=== PATIENT | male | born 1930 | race Caucasian/White ===

== ENCOUNTER 2018-06-14 15:51 | Inpatient (IN) | payer OTHER, BC ==
[2018-06-14] MEDS ORDERED: OSELTAMIVIR PHOSPHATE 75 MG CAPSULE PO ONE (17:05)
[2018-06-14] MEDS ORDERED: OSELTAMIVIR PHOSPHATE 75 MG CAPSULE ONE (17:13)
[2018-06-14] MEDS ORDERED: guaiFENesin 200 MG/10 ML 10 ML UNIT-DOSE CUPS PO ONE (17:13)
[2018-06-14] MEDS ORDERED: SODIUM CHLORIDE 1,000 ML IV SCH (17:15)
[2018-06-14] MEDS ORDERED: guaiFENesin/D-METHORPHAN HB 10 ML UNIT-DOSE CUPS ONE (17:15)
[2018-06-14 17:23] LABS: BASO % 0.1 % (0-2.0); HEMATOCRIT 34.3 % (35.4-49); HEMOGLOBIN 11.4 GM/dl (11.7-16.9); LYMPH % 11.4 % (8-40); MCH 31.3 pg (25.7-33.7); MCHC 33.3 g/dl (32.0-35.9); MEAN CELL VOLUME 93.9 fl (80-96); MEAN PLT VOLUME 7.7 fl (7.5-11.1); MONO % 7.3 % (3.8-10.2); NEUT % 81.2 % (42.8-82.8); PLATELET COUNT 152 K/MM3 (134-434); RBC 3.65 M/mm3 (4.00-5.60); RDW 13.4 % (11.9-15.9); WHITE BLOOD COUNT 6.4 K/mm3 (4.0-10.8)
[2018-06-14] MEDS ORDERED: guaiFENesin/D-METHORPHAN HB 10 ML UNIT-DOSE CUPS PO ONE (17:23)
[2018-06-14 17:33] LABS: ACTIVATED PTT 29.2 SECONDS (25.2-36.5)
[2018-06-14 17:37] LABS: ALBUMIN 3.5 g/dl (3.5-5.0); ALK PHOS 82 U/L (32-92); ANION GAP 10 MMOL/L (8-16); BILIRUBIN,TOTAL 0.3 mg/dl (0.2-1.0); BLOOD UREA NITROGEN 41 mg/dl (7-18); CALCIUM 8.6 mg/dl (8.4-10.2); CHLORIDE 109 mmol/L (98-107); CO2 17 mmol/L (22-28); CREATININE 1.8 mg/dl (0.6-1.3); GLUCOSE,RANDOM 130 mg/dl (74-106); SGOT/AST 37 U/L (10-42); SGPT/ALT 34 U/L (10-40); SODIUM 136 mmol/L (136-145); TOT PROT 7.3 g/dl (6.4-8.3)
--- NOTE | 2018-06-14 17:37 | PDOC ---
History of Present Illness - General Chief Complaint: Respiratory Stated Complaint: FLU POSITIVE,DIARRHEA,VOMITING,COUGH AND GEN WEAKN Time Seen by Provider: 06/14/18 15:54 History Source: Patient Exam Limitations: No Limitations - History of Present Illness Initial Comments: 06/14/18 17:30 87 year old male c/ hx of lupus on plaquenil, DM, PVD, CKD p/w influenza. 4 days ago, pt started to develop loose stooling and general malaise, and poor appetite. Within last 3 days, the patient started to develop coughing, SOB, difficulty sleeping, tactile fevers. Has been feeling so weak that pt's grandson has been trying to get him around house by picking him up. But patient has been unable to get up. Not really eating. Started to endose some mild but no chest pain. Yesterday, went to [facility] urgent care, where he obtained and influenza swab. Was swabbed positive. However, at that time, the physician decided against tamiflu given that he is also having diarrhea. Today, the symptoms are even worse, and pt is feeling very dehydrated and generally weak. Past History - Past Medical History Allergies/Adverse Reactions: Allergies Allergy/AdvReac Type Severity Reaction Status Date / Time No Known Allergies Allergy Verified 06/14/18 15:58 Home Medications: Ambulatory Orders Aspirin [Children's Aspirin] 81 mg PO DAILY 06/14/18 Baclofen 10 mg PO HS 06/14/18 Cholecalciferol (Vitamin D3) [Vitamin D3 -] 5,000 unit PO DAILY 06/14/18 Cyanocobalamin (Vitamin B-12) [Vitamin B12] 2,500 mcg PO DAILY 06/14/18 Ferrous Sulfate [Iron] 325 mg PO DAILY 06/14/18 Folic Acid 1 mg PO DAILY 06/14/18 Hydrochlorothiazide [Hctz -] 12.5 mg PO DAILY 06/14/18 Hydroxychloroquine Sulfate 200 mg PO DAILY 06/14/18 Leflunomide [Arava] 20 mg PO DAILY 06/14/18 Lisinopril [Zestril] 5 mg PO DAILY 06/14/18 Metformin HCl [Glucophage] 500 mg PO ASDIR 06/14/18 Multivit-Min/FA/Lycopen/Lutein [Centrum Silver Tablet] 1 each PO DAILY 06/14/18 [place]-3S/Dha/Epa/Fish Oil [Fish Oil 1,200 mg Softgel] 1,400 each PO DAILY Omeprazole 40 mg PO DAILY 06/14/18 Rivastigmine Tartrate [Rivastigmine] 3 mg PO BID 06/14/18 Vitamin B Complex 1 each PO DAILY 06/14/18 COPD: No Diabetes: Yes Disorders: Yes (RENAL ISSUES) HTN: Yes Hypercholesterolemia: Yes Other medical history: RA,LUPUS - Suicide/Smoking/Psychosocial Hx Smoking History: Former smoker Have you smoked in the past 12 months: No If you are a former smoker, when did you quit?: 45 years ago Information on smoking cessation initiated: No Hx Alcohol Use: No Drug/Substance Use Hx: No Review of Systems - Review of Systems Able to Perform ROS?: Yes Comments:: 06/14/18 17:32 GENERAL/CONSTITUTIONAL: + fever / chills. + weakness. HEAD, EYES, EARS, NOSE AND THROAT: [No change in vision. No ear pain or discharge. No sore throat.] CARDIOVASCULAR: [No chest pain or shortness of breath.] RESPIRATORY: [No wheezing, or hemoptysis.] + cough GASTROINTESTINAL: [No nausea, vomiting, constipation. No rectal bleeding.] + diarrhea GENITOURINARY: [No dysuria, frequency, or change in urination.] MUSCULOSKELETAL: [No joint or muscle swelling or pain. No neck or back pain.] SKIN AND BREASTS: [No rash or easy bruising.] NEUROLOGIC: [No headache, vertigo, loss of consciousness, or loss of sensation.] PSYCHIATRIC: [No depression or anxiety.] ENDOCRINE: [No increased thirst. No abnormal weight change.] HEMATOLOGIC/LYMPHATIC: [No anemia, easy bleeding, or history of blood clots.] ALLERGIC/IMMUNOLOGIC: [No hives or skin allergy. No latex allergy.] *Physical Exam - Vital Signs Last Vital Signs Temp Pulse Resp BP Pulse Ox 97.5 F L 65 20 136/78 96 06/14/18 15:53 06/14/18 15:53 06/14/18 15:53 06/14/18 15:53 06/14/18 15:53 - Physical Exam Comments: 06/14/18 17:37 GENERAL: Awake, alert, and fully oriented, in no acute distress HEAD: No signs of trauma EYES: EOMI, sclera anicteric, conjunctiva clear ENT: Auricles normal inspection, hearing grossly normal, nares patent. Moist mucosa NECK: Normal ROM, supple, LUNGS: Breath sounds equal, clear to auscultation bilaterally. No wheezes, and no crackles HEART: Regular rate and rhythm, normal S1 and S2, no murmurs, rubs or gallops ABDOMEN: Soft, nontender, No guarding, no rebound. No masses EXTREMITIES: Normal range of motion, no edema. No clubbing or cyanosis. No cords, erythema, or tenderness NEUROLOGICAL: Cranial nerves II through XII grossly intact. Normal speech SKIN: Warm, Dry, normal turgor, no rashes or lesions noted. Moderate Sedation - Procedure Monitoring Vital Signs: Procedure Monitoring Vital Signs Temperature 97.5 F L 06/14/18 15:53 Pulse Rate 65 06/14/18 15:53 Respiratory Rate 20 06/14/18 15:53 Blood Pressure 136/78 06/14/18 15:53 O2 Sat by Pulse Oximetry (%) 96 06/14/18 15:53 Heart Score/ECG Review #1 ECG reviewed & interpreted by me at: 17:10 06/14/18 17:38 NSR 98, no std/hans, normal axis, normal intervals, QTC 446 msec ED Treatment Course - LABORATORY CBC & Chemistry Diagram: 06/14/18 16:58 06/14/18 16:58 - ADDITIONAL ORDERS Additional order review: 06/14/18 16:58 RBC 3.65 L MCV 93.9 MCHC 33.3 RDW 13.4 MPV 7.7 Neutrophils % 81.2 Lymphocytes % 11.4 Monocytes % 7.3 Eosinophils % 0.0 Basophils % 0.1 - RADIOLOGY Radiology Studies Ordered: Category Date Time Status CHEST X-RAY PORTABLE* [RAD] Stat Radiology 06/14/18 16:28 Taken Medical Decision Making - Medical Decision Making 06/14/18 17:39 Vital Signs Temp Pulse Resp BP Pulse Ox 97.5 F L 65 20 136/78 96 06/14/18 15:53 06/14/18 15:53 06/14/18 15:53 06/14/18 15:53 06/14/18 15:53 This is an elderly patient with lupus and diabetes with immunosuprresion with worsening symptoms and positive influenza. Pt is incredibly high risk for influenza complications. According to CDC guidelines, should consider starting tamiflu, even if symptoms > 48 hours. Will order tamiflu. Also given multiple symptoms, decreased PO intake, persistent diarrhea, pt would benefit from an observation from hospital. For stools, will order stool cultures and c-diff. 06/14/18 18:17 CBC, BMP 06/14/18 16:58 06/14/18 16:58 CMP Sodium 136 mmol/L (136-145) 06/14/18 16:58 Potassium 5.0 mmol/L (3.5-5.1) 06/14/18 16:58 Chloride 109 mmol/L (98-107) H 06/14/18 16:58 Carbon Dioxide 17 mmol/L (22-28) L 06/14/18 16:58 Anion Gap 10 MMOL/L (8-16) 06/14/18 16:58 BUN 41 mg/dl (7-18) H 06/14/18 16:58 Creatinine 1.8 mg/dl (0.6-1.3) H 06/14/18 16:58 Creat Clearance w eGFR 36.04 (>60) 06/14/18 16:58 Random Glucose 130 mg/dl (74-106) H 06/14/18 16:58 Calcium 8.6 mg/dl (8.4-10.2) 06/14/18 16:58 Total Bilirubin 0.3 mg/dl (0.2-1.0) 06/14/18 16:58 AST 37 U/L (10-42) 06/14/18 16:58 ALT 34 U/L (10-40) 06/14/18 16:58 Alkaline Phosphatase 82 U/L (32-92) 06/14/18 16:58 Troponin I < 0.03 ng/ml (0.00-0.06) 06/14/18 16:58 Total Protein 7.3 g/dl (6.4-8.3) 06/14/18 16:58 Albumin 3.5 g/dl (3.5-5.0) 06/14/18 16:58 Chest xray reviewed by me, pending official radiology read. R sided pneumonia. Has not been hospitalized for about a year, ceftriaxone and azithromycin ordered. Given CKD, 30 mg PO tamiflu BID ordered. Decision was made to admit patient to the hospital. Case discussed with Dr. Martinez who accepts patient to med/surg admission. Case discussed in detail with admitting physician including history, physical exam and ancillary studies. Admitting physician has assumed care for the patient, will follow all pending diagnostics and will complete the evaluation and treatment. *DC/Admit/Observation/Transfer Diagnosis at time of Disposition: Influenza Pneumonia Qualifiers: Pneumonia type: due to unspecified organism Laterality: unspecified laterality Lung location: unspecified part of lung Qualified Code(s): J18.9 - Pneumonia, unspecified organism - Discharge Dispostion Condition at time of disposition: Fair Decision to Admit order: Yes - Referrals - Patient Instructions - Post Discharge Activity
[2018-06-14 17:38] LABS: INR 1.17 (0.82-1.09); PROTHROMBIN TIME (PATIENT) 13.1 SEC (10.2-13.0)
[2018-06-14] MEDS ORDERED: AZITHROMYCIN IVPB 500 MG in DEXTROSE 5%-WATER - 250 ML IVPB ONE (17:43)
[2018-06-14] MEDS ORDERED: CEFTRIAXONE 1,000 MG in DEXTROSE 5%-WATER - 50 ML IVPB ONE (17:43)
[2018-06-14] MEDS ORDERED: AZITHROMYCIN 500 MG VIAL IVPB ONE (17:46)
[2018-06-14] MEDS ORDERED: cefTRIAXone SODIUM 1 GM VIAL ONE (17:47)
[2018-06-14 18:43] LABS: URINE APPEARANCE Clear; URINE BILIRUBIN Negative (NEGATIVE); URINE COLOR Yellow; URINE GLUCOSE (UA) Negative (NEGATIVE); URINE KETONE Negative (NEGATIVE); URINE LEUK ESTERASE Negative (NEGATIVE); URINE NITRITE Negative (NEGATIVE); URINE PROTEIN 3+ (NEGATIVE); URINE UROBILINOGEN 0.2 (0.2-1.0)
[2018-06-14 18:43] LABS: VENOUS PC02 37.1 mmHg (38-52); VENOUS PH 7.32 (7.32-7.42); VENOUS PO2 33.2 mmHg (28-48)
[2018-06-14 19:08] LABS: URINE BACTERIA 1+ /hpf (NEGATIVE); URINE WBC 0-2 (0-2)
[2018-06-14] MEDS: OSELTAMIVIR PHOSPHATE 30 MG CAPSULE PO SCH ×2 (20:08→22:04)
[2018-06-14] MEDS ORDERED: guaiFENesin 200 MG/10 ML 10 ML UNIT-DOSE CUPS PO STA (21:53)
[2018-06-14] MEDS ORDERED: OSELTAMIVIR PHOSPHATE 30 MG CAPSULE PO SCH (22:00)
--- NOTE | 2018-06-14 22:39 | HP ---
CHIEF COMPLAINT: Flu like symptoms, Generalized Weakness, Diarrhea PCP: [facility] HISTORY OF PRESENT ILLNESS: This is a 87 y/o man with a past medical history of Lupus (Plaqunil), NIDDM, PVD (Stent placed L- Leg), CKD, Dementia. Who presents with his family for flu like symptoms, watery diarrhea (4 days), and generalized weakness. Per the daughter the patient was seen at [facility]- diagnosed with Influenza but was not given rx. She reports he has had fevers for 1 week, nad was concerned that he was dehydrated from the diarrhea, fever and decreased appetite. She reports that he was so weak that an ambulance was called and he was transported to [facility], but due to the long wait time and delays for admission, they left and was brought up to [place] for evaluation. Patient reports fever, diarrhea, weakness and malaise. Patient denies chest pain, abdominal pain, dysuria. Patient's daughter is also sick with the Flu. ER course was notable for: (1) Chest Xray- R Infiltrate (2) T Max 99.1 (3) Recent Travel: [place] PAST MEDICAL HISTORY: See HPI PAST SURGICAL HISTORY: Stent in left leg Cholecystectomy Lithotripsy Social History: Smoking: Former > 40 yrs ago Alcohol: Former > 40 yrs ago Drugs: Denies Lives with spouse, retired, ambulates with [employer] Family History: Father: natural cause age 96 Mother: natural cause age 92 Allergies No Known Allergies Allergy (Verified 06/14/18 15:58) HOME MEDICATIONS: Home Medications Medication Instructions Recorded Aspirin [Children's Aspirin] 81 mg PO DAILY 06/14/18 Baclofen 10 mg PO HS 06/14/18 Cholecalciferol (Vitamin D3) 5,000 unit PO DAILY 06/14/18 [Vitamin D3 -] Cyanocobalamin (Vitamin B-12) 2,500 mcg PO DAILY 06/14/18 [Vitamin B12] Ferrous Sulfate [Iron] 325 mg PO DAILY 06/14/18 Folic Acid 1 mg PO DAILY 06/14/18 Hydrochlorothiazide [Hctz -] 12.5 mg PO DAILY 06/14/18 Hydroxychloroquine Sulfate 200 mg PO DAILY 06/14/18 Leflunomide [Arava] 20 mg PO DAILY 06/14/18 Lisinopril [Zestril] 5 mg PO DAILY 06/14/18 Metformin HCl [Glucophage] 500 mg PO ASDIR 06/14/18 Multivit-Min/FA/Lycopen/Lutein 1 each PO DAILY 06/14/18 [Centrum Silver Tablet] [place]-3S/Dha/Epa/Fish Oil [Fish 1,400 each PO DAILY 06/14/18 Oil 1,200 mg Softgel] Omeprazole 40 mg PO DAILY 06/14/18 Rivastigmine Tartrate 3 mg PO BID 06/14/18 [Rivastigmine] Vitamin B Complex 1 each PO DAILY 06/14/18 REVIEW OF SYSTEMS CONSTITUTIONAL: fever, generalized weakness, malaise, loss of appetite, Absent: chills, diaphoresis, weight change HEENT: rhinorrhea, nasal congestion Absent: throat pain, throat swelling, difficulty swallowing, mouth swelling, ear pain, eye pain, visual changes CARDIOVASCULAR: Absent: chest pain, syncope, palpitations, irregular heart rate, lightheadedness , peripheral edema RESPIRATORY: cough Absent: shortness of breath, dyspnea with exertion, orthopnea, wheezing, stridor , hemoptysis GASTROINTESTINAL: Absent: abdominal pain, abdominal distension, nausea, vomiting, diarrhea, constipation, melena, hematochezia GENITOURINARY: Absent: dysuria, frequency, urgency, hesitancy, hematuria, flank pain, genital pain MUSCULOSKELETAL: Absent: myalgia, arthralgia, joint swelling, back pain, neck pain SKIN: Absent: rash, itching, pallor HEMATOLOGIC/IMMUNOLOGIC: Absent: easy bleeding, easy bruising, lymphadenopathy, frequent infections ENDOCRINE: Absent: unexplained weight gain, unexplained weight loss, heat intolerance, cold intolerance NEUROLOGIC: Absent: headache, focal weakness or paresthesias, dizziness, unsteady gait, seizure, mental status changes, bladder or bowel incontinence PSYCHIATRIC: Absent: anxiety, depression, suicidal or homicidal ideation, hallucinations. PHYSICAL EXAMINATION Vital Signs - 24 hr 06/14/18 06/14/18 06/14/18 15:53 18:56 20:19 Temperature 97.5 F L 99.1 F Pulse Rate 65 Pulse Rate [ 89 73 Apical] Respiratory 20 19 Rate Blood Pressure 136/78 Blood Pressure 141/54 L [Arm] O2 Sat by Pulse 96 97 98 Oximetry (%) GENERAL: Awake, alert, and fully oriented, in no acute distress. HEAD: Normal with no signs of trauma. EYES: Pupils equal, round and reactive to light, extraocular movements intact, sclera anicteric, conjunctiva clear. No lid lag. EARS, NOSE, THROAT: Ears normal, nares patent, oropharynx clear without exudates. Dry mucous membranes. NECK: Normal range of motion, supple without lymphadenopathy, JVD, or masses. LUNGS: Coarse breath sounds, with diminishment to RML, base. No accessory muscle use. HEART: Regular rate and rhythm, normal S1 and S2 without murmur, rub or gallop. ABDOMEN: Soft, nontender, not distended, normoactive bowel sounds, no guarding, no rebound, no masses. No hepatomegaly or splenomegaly. MUSCULOSKELETAL: Normal range of motion at all joints. No bony deformities or tenderness. No CVA tenderness. UPPER EXTREMITIES: 2+ pulses, warm, well-perfused. No cyanosis. No clubbing. No peripheral edema. LOWER EXTREMITIES: 2+ pulses, warm, well-perfused. No calf tenderness. No peripheral edema. NEUROLOGICAL: Cranial nerves II-XII intact. Normal speech. Gait not observed. PSYCHIATRIC: Cooperative. Good eye contact. Appropriate mood and affect. SKIN: Warm, dry, normal turgor, no rashes or lesions noted, normal capillary refill. Laboratory Results - last 24 hr 06/14/18 06/14/18 06/14/18 16:58 16:58 16:58 WBC 6.4 RBC 3.65 L Hgb 11.4 L Hct 34.3 L MCV 93.9 MCH 31.3 MCHC 33.3 RDW 13.4 Plt Count 152 MPV 7.7 Absolute Neuts (auto) 5.2 Neutrophils % 81.2 Lymphocytes % 11.4 Monocytes % 7.3 Eosinophils % 0.0 Basophils % 0.1 PT with INR 13.1 H INR 1.17 PTT (Actin FS) 29.2 VBG pH 7.32 POC VBG pCO2 37.1 L POC VBG pO2 33.2 Mixed VBG HCO3 18.8 L Sodium Potassium Chloride Carbon Dioxide Anion Gap BUN Creatinine Creat Clearance w eGFR Random Glucose Lactic Acid Calcium Total Bilirubin AST ALT Alkaline Phosphatase Troponin I Total Protein Albumin Urine Color Urine Appearance Urine pH Ur Specific [place] Urine Protein Urine Glucose (UA) Urine Ketones Urine Blood Urine Nitrite Urine Bilirubin Urine Urobilinogen Ur Leukocyte Esterase Urine RBC Urine WBC Urine Bacteria 06/14/18 06/14/18 06/14/18 16:58 16:58 16:58 WBC RBC Hgb Hct MCV MCH MCHC RDW Plt Count MPV Absolute Neuts (auto) Neutrophils % Lymphocytes % Monocytes % Eosinophils % Basophils % PT with INR INR PTT (Actin FS) VBG pH POC VBG pCO2 POC VBG pO2 Mixed VBG HCO3 Sodium 136 Potassium 5.0 Chloride 109 H Carbon Dioxide 17 L Anion Gap 10 BUN 41 H Creatinine 1.8 H Creat Clearance w eGFR 36.04 Random Glucose 130 H Lactic Acid 0.8 Calcium 8.6 Total Bilirubin 0.3 AST 37 ALT 34 Alkaline Phosphatase 82 Troponin I < 0.03 Total Protein 7.3 Albumin 3.5 Urine Color Urine Appearance Urine pH Ur Specific [place] Urine Protein Urine Glucose (UA) Urine Ketones Urine Blood Urine Nitrite Urine Bilirubin Urine Urobilinogen Ur Leukocyte Esterase Urine RBC Urine WBC Urine Bacteria 06/14/18 18:30 WBC RBC Hgb Hct MCV MCH MCHC RDW Plt Count MPV Absolute Neuts (auto) Neutrophils % Lymphocytes % Monocytes % Eosinophils % Basophils % PT with INR INR PTT (Actin FS) VBG pH POC VBG pCO2 POC VBG pO2 Mixed VBG HCO3 Sodium Potassium Chloride Carbon Dioxide Anion Gap BUN Creatinine Creat Clearance w eGFR Random Glucose Lactic Acid Calcium Total Bilirubin AST ALT Alkaline Phosphatase Troponin I Total Protein Albumin Urine Color Yellow Urine Appearance Clear Urine pH 5.0 Ur Specific [place] 1.025 Urine Protein 3+ H Urine Glucose (UA) Negative Urine Ketones Negative Urine Blood 2+ H Urine Nitrite Negative Urine Bilirubin Negative Urine Urobilinogen 0.2 Ur Leukocyte Esterase Negative Urine RBC 2-5 Urine WBC 0-2 Urine Bacteria 1+ ASSESSMENT/PLAN: This is a 87 y/o man Placed in Observation for Pneumonia, Influenza for further evaluation of their emergent condition. Plan: See Problem List FEN: D51/2NS@42ml/hr,Replete lytes prn, low Na, Diabetic Diet DVT ppx:OOB, SCDs, Consider AC if LOS > 48 hrs Code Status: Full Code Dispo: Observation Problem List - Problem (1) Pneumonia Assessment/Plan: Likely CAP CURB 65 Score 2 Chest Xray image- Right sided infiltrate Blood Cultures-pending Lactic Acid- 0.8 Urine Culture-pending Will order Legionella Culture Azithromycin and Ceftriaxone given in ED, will continue Monitor CBC, BMP Consider ID consult if condition worsens Monitor vitals Code(s): J18.9 - PNEUMONIA, UNSPECIFIED ORGANISM Qualifiers: Pneumonia type: due to unspecified organism Laterality: unspecified laterality Lung location: unspecified part of lung Qualified Code(s): J18.9 - Pneumonia, unspecified organism (2) Influenza Assessment/Plan: Currently treated Will continue Tamiflu renal dosing Monitor vitals Monitor CBC Code(s): J11.1 - FLU DUE TO UNIDENTIFIED INFLUENZA VIRUS W OTH RESP MANIFEST (3) CYNTHIA (acute kidney injury) Assessment/Plan: Acute on Chronic CKD Likely secondary to Pneumonia vs Dehydration Continue gentle IVF Monitor BMP Hold Metformin, HCTZ, Lisinopril Code(s): N17.9 - ACUTE KIDNEY FAILURE, UNSPECIFIED (4) Lupus Assessment/Plan: Continue Plaquenil Code(s): M32.9 - SYSTEMIC LUPUS ERYTHEMATOSUS, UNSPECIFIED (5) Diabetes mellitus Assessment/Plan: Stable Monitor BGMs ISS Monitor renal function Code(s): E11.9 - TYPE 2 DIABETES MELLITUS WITHOUT COMPLICATIONS (6) CKD (chronic kidney disease) Assessment/Plan: Cr 1.8 Will avoid nephrotoxic drugs Monitor renal function Code(s): N18.9 - CHRONIC KIDNEY DISEASE, UNSPECIFIED Visit type - Emergency Visit Emergency Visit: Yes ED Registration Date: 06/14/18 Care time: The patient presented to the Emergency Department on the above date and was hospitalized for further evaluation of their emergent condition. - New Patient This patient is new to me today: Yes Date on this admission: 06/14/18 - Critical Care Critical Care patient: No
[2018-06-14] MEDS: HEPARIN NA (PORCINE) 5,000 UNITS/ML 1ML VIAL SQ SCH (22:54)
[2018-06-14] MEDS: ACETAMINOPHEN 325 MG TABLET (FP) PO PRN (22:55)
[2018-06-14] MEDS ORDERED: DEXTROSE 5%-0.45% SALINE 1,000 ML IV SCH (23:00)
[2018-06-14] MEDS ORDERED: guaiFENesin/D-METHORPHAN HB 10 ML UNIT-DOSE CUPS PO PRN (23:16)
[2018-06-15 01:32] VITALS: BMI 20.5
[2018-06-15] MEDS: RIVASTIGMINE TARTRATE 1.5 MG CAPSULE PO SCH ×3 (02:30→21:48)
[2018-06-15] MEDS: HEPARIN NA (PORCINE) 5,000 UNITS/ML 1ML VIAL SQ SCH ×3 (05:57→21:48)
[2018-06-15] MEDS: ACETAMINOPHEN 325 MG TABLET (FP) PO PRN ×2 (06:04→21:48)
[2018-06-15 08:16] LABS: BASO % 0.1 % (0-2.0); EOS % 0.2 % (0-4.5); HEMOGLOBIN 9.3 GM/dl (11.7-16.9); LYMPH % 20.6 % (8-40); MCH 30.8 pg (25.7-33.7); MCHC 33.1 g/dl (32.0-35.9); MEAN CELL VOLUME 92.9 fl (80-96); MEAN PLT VOLUME 7.5 fl (7.5-11.1); MONO % 11.7 % (3.8-10.2); NEUT % 67.4 % (42.8-82.8); PLATELET COUNT 128 K/MM3 (134-434); RBC 3.01 M/mm3 (4.00-5.60); RDW 13.4 % (11.9-15.9); WHITE BLOOD COUNT 4.7 K/mm3 (4.0-10.8)
[2018-06-15 08:29] LABS: ANION GAP 5 MMOL/L (8-16); BLOOD UREA NITROGEN 32 mg/dl (7-18); CALCIUM 7.9 mg/dl (8.4-10.2); CHLORIDE 111 mmol/L (98-107); CO2 19 mmol/L (22-28); CREATININE 1.5 mg/dl (0.6-1.3); GLUCOSE,RANDOM 123 mg/dl (74-106); POTASSIUM 4.2 mmol/L (3.5-5.1); SODIUM 135 mmol/L (136-145)
[2018-06-15] MEDS ORDERED: SODIUM CHLORIDE 1,000 ML IV SCH (09:15)
[2018-06-15] MEDS ORDERED: PT OWN MED DRAWER 7, Y5N ONE ×2 (09:37→21:28)
[2018-06-15] MEDS: HYDROXYCHLOROQUINE SO4 200 MG TABLET (FP) PO SCH (09:53)
[2018-06-15] MEDS: CHOLECALCIFEROL (VITAMIN D3) 1,000 UNIT TABLET (FP) PO SCH (09:54)
[2018-06-15] MEDS: OMEGA-3 ACID ETHYL ESTERS (FATTY-ACIDS) 1 GM CAPSULE (FP) PO SCH (09:54)
[2018-06-15] MEDS: VITAMIN B COMPLEX W/C COMBO TABLET (FP) PO SCH (09:57)
[2018-06-15] MEDS: OSELTAMIVIR PHOSPHATE 30 MG CAPSULE PO SCH ×2 (09:58→21:47)
[2018-06-15] MEDS: FOLIC ACID 1 MG TABLET (FP) PO SCH (09:58)
[2018-06-15] MEDS: ASPIRIN 81 MG CHEWABLE TABLETS PO SCH (09:58)
[2018-06-15] MEDS: MULTIVITAMINS THER W-MINERALS COMBO TABLET (FP) PO SCH (09:58)
[2018-06-15] MEDS: PANTOPRAZOLE 40 MG TABLET (FP) PO SCH (09:58)
[2018-06-15] MEDS: FERROUS SO4 325 MG TABLET (FP) PO SCH (09:59)
[2018-06-15] MEDS ORDERED: AZITHROMYCIN IVPB 500 MG/250 ML D5W PRE-DOCKED IVPB SCH (10:00)
[2018-06-15] MEDS ORDERED: AZITHROMYCIN IVPB 500 MG in DEXTROSE 5%-WATER - 250 ML IVPB SCH (10:00)
[2018-06-15] MEDS ORDERED: CEFTRIAXONE 1 G/50 ML PREMIX 50 ML IVPB SCH (10:00)
[2018-06-15] MEDS: CYANOCOBALAMIN 1,000 MCG TABLET (FP) PO SCH (10:04)
--- NOTE | 2018-06-15 10:43 | PN ---
Physical Exam: SUBJECTIVE: Patient seen and examined sitting on edge of bed. Seen ambulating in room earlier. Episode of watery diarrhea. OBJECTIVE: Vital Signs Period Temp Pulse Resp BP Sys/Mejía Pulse Ox Last 24 Hr 97.1 F-99.3 F 65-92 19-20 136-151/54-78 96-98 GENERAL: The patient is awake, alert, and fully oriented, in no acute distress. LUNGS: Breath sounds equal, clear to auscultation bilaterally, no wheezes, no crackles, no accessory muscle use. HEART: Regular rate and rhythm, S1, S2 without murmur, rub or gallop. ABDOMEN: Soft, nontender, nondistended, normoactive bowel sounds, no guarding, no rebound EXTREMITIES: 2+ pulses, warm, well-perfused, no edema. NEUROLOGICAL: Cranial nerves II through XII grossly intact. Normal speech, steady gait. Laboratory Results - last 24 hr 06/14/18 06/14/18 06/14/18 16:58 16:58 16:58 WBC 6.4 RBC 3.65 L Hgb 11.4 L Hct 34.3 L MCV 93.9 MCH 31.3 MCHC 33.3 RDW 13.4 Plt Count 152 MPV 7.7 Absolute Neuts (auto) 5.2 Neutrophils % 81.2 Lymphocytes % 11.4 Monocytes % 7.3 Eosinophils % 0.0 Basophils % 0.1 PT with INR 13.1 H INR 1.17 PTT (Actin FS) 29.2 VBG pH 7.32 POC VBG pCO2 37.1 L POC VBG pO2 33.2 Mixed VBG HCO3 18.8 L Sodium Potassium Chloride Carbon Dioxide Anion Gap BUN Creatinine Creat Clearance w eGFR Random Glucose Lactic Acid Calcium Total Bilirubin AST ALT Alkaline Phosphatase Troponin I Total Protein Albumin Urine Color Urine Appearance Urine pH Ur Specific [place] Urine Protein Urine Glucose (UA) Urine Ketones Urine Blood Urine Nitrite Urine Bilirubin Urine Urobilinogen Ur Leukocyte Esterase Urine RBC Urine WBC Urine Bacteria 06/14/18 06/14/18 06/14/18 16:58 16:58 16:58 WBC RBC Hgb Hct MCV MCH MCHC RDW Plt Count MPV Absolute Neuts (auto) Neutrophils % Lymphocytes % Monocytes % Eosinophils % Basophils % PT with INR INR PTT (Actin FS) VBG pH POC VBG pCO2 POC VBG pO2 Mixed VBG HCO3 Sodium 136 Potassium 5.0 Chloride 109 H Carbon Dioxide 17 L Anion Gap 10 BUN 41 H Creatinine 1.8 H Creat Clearance w eGFR 36.04 Random Glucose 130 H Lactic Acid 0.8 Calcium 8.6 Total Bilirubin 0.3 AST 37 ALT 34 Alkaline Phosphatase 82 Troponin I < 0.03 Total Protein 7.3 Albumin 3.5 Urine Color Urine Appearance Urine pH Ur Specific [place] Urine Protein Urine Glucose (UA) Urine Ketones Urine Blood Urine Nitrite Urine Bilirubin Urine Urobilinogen Ur Leukocyte Esterase Urine RBC Urine WBC Urine Bacteria 06/14/18 06/15/18 06/15/18 18:30 07:45 07:45 WBC 4.7 RBC 3.01 L Hgb 9.3 L Hct 28.0 L D MCV 92.9 MCH 30.8 MCHC 33.1 RDW 13.4 Plt Count 128 L MPV 7.5 Absolute Neuts (auto) 3.2 Neutrophils % 67.4 Lymphocytes % 20.6 D Monocytes % 11.7 H Eosinophils % 0.2 D Basophils % 0.1 PT with INR INR PTT (Actin FS) VBG pH POC VBG pCO2 POC VBG pO2 Mixed VBG HCO3 Sodium 135 L Potassium 4.2 Chloride 111 H Carbon Dioxide 19 L Anion Gap 5 L BUN 32 H Creatinine 1.5 H Creat Clearance w eGFR 44.48 Random Glucose 123 H Lactic Acid Calcium 7.9 L Total Bilirubin AST ALT Alkaline Phosphatase Troponin I Total Protein Albumin Urine Color Yellow Urine Appearance Clear Urine pH 5.0 Ur Specific [place] 1.025 Urine Protein 3+ H Urine Glucose (UA) Negative Urine Ketones Negative Urine Blood 2+ H Urine Nitrite Negative Urine Bilirubin Negative Urine Urobilinogen 0.2 Ur Leukocyte Esterase Negative Urine RBC 2-5 Urine WBC 0-2 Urine Bacteria 1+ Active Medications Generic Name Dose Route Start Last Admin Trade Name Freq PRN Reason Stop Dose Admin Acetaminophen 650 mg 06/14/18 22:46 06/15/18 06:04 Tylenol - PO 650 mg Q6H PRN Administration FEVER Aspirin 81 mg 06/15/18 10:00 06/15/18 09:58 Asa - PO 81 mg DAILY NARCISO Administration Azithromycin 500 mg 06/15/18 10:00 06/15/18 09:53 Zithromax 500mg Ivpb (Pre-Docked) IVPB 500 mg DAILY NARCISO Administration Baclofen 10 mg 06/15/18 22:00 Lioresal - PO HS NARCISO Cholecalciferol 5,000 unit 06/15/18 10:00 06/15/18 09:54 Vitamin D3 - PO 5,000 unit DAILY NARCISO Administration Cyanocobalamin 2,500 mcg 06/15/18 10:00 06/15/18 10:04 Vitamin B12 - PO 2,500 mcg DAILY NARCISO Administration Ferrous Sulfate 325 mg 06/15/18 10:00 06/15/18 09:59 Feosol - PO 325 mg DAILY NARCISO Administration Folic Acid 1 mg 06/15/18 10:00 06/15/18 09:58 Folic Acid - PO 1 mg DAILY NARCISO Administration Guaifenesin 10 ml 06/14/18 23:16 06/15/18 06:04 Robitussin Dm - PO 10 ml Q6H PRN Administration COUGH Heparin Sodium (Porcine) 5,000 unit 06/14/18 22:00 06/15/18 05:57 Heparin - SQ 5,000 unit TID NARCISO Administration Hydroxychloroquine Sulfate 200 mg 06/15/18 10:00 06/15/18 09:53 Plaquenil - PO 200 mg DAILY NARCISO Administration Ceftriaxone Sodium 50 mls @ 100 mls/hr 06/15/18 10:00 06/15/18 09:48 Ceftriaxone 1 Gm-D5w Bag IVPB 100 mls/hr DAILY NARCISO Administration Protocol Sodium Chloride 1,000 mls @ 50 mls/hr 06/15/18 09:15 06/15/18 09:45 Normal Saline - IV 06/16/18 09:13 50 mls/hr ASDIR NARCISO Administration Multivitamins 1 each 06/15/18 10:00 06/15/18 09:57 Total B With C - PO 1 each DAILY NARCISO Administration Multivitamins/Minerals 1 each 06/15/18 10:00 06/15/18 09:58 Theragran-M PO 1 each DAILY NARCISO Administration [id number] Ethyl Esters 1 gm 06/15/18 10:00 06/15/18 09:54 Lovaza - PO 1 gm DAILY NARCISO Administration Oseltamivir Phosphate 30 mg 06/14/18 17:56 06/15/18 09:58 Tamiflu - PO 06/19/18 17:55 30 mg BID NARCISO Administration Pantoprazole Sodium 40 mg 06/15/18 10:00 06/15/18 09:58 Protonix - PO 40 mg DAILY NARCISO Administration Rivastigmine Tartrate 3 mg 06/14/18 23:45 06/15/18 09:59 Exelon (Nf) - PO 3 mg BID NARCISO Administration ASSESSMENT/PLAN 87 year-old male with a PMH significant for lupus on Plaquenil, NIDDM, PVD s/p LLE stent, CKD, and dementia. Admitted for flu-like symptoms. Influenza --reportedly flu swab positive at [facility]; reported symptoms of weakness, fever, diarrhea on admission --afebrile, no leukocytosis --CXR and CT chest negative for pneumonia --continue empiric ceftriaxone and azitromycin --continue Tamiflu --ID pending CKD --Cr 1.8 on admission, 1.5 today, baseline unknown --continue gentle IV fluids Lupus --no acute issues NIDDM --Novolog sliding scale coverage DVT prophylaxis: subq heparin Visit type - Emergency Visit Emergency Visit: Yes ED Registration Date: 06/14/18 Care time: The patient presented to the Emergency Department on the above date and was hospitalized for further evaluation of their emergent condition. - New Patient This patient is new to me today: Yes Date on this admission: 06/17/18 - Critical Care Critical Care patient: No
--- NOTE | 2018-06-15 11:39 | EKG ---
Test Reason : Blood Pressure : / mmHG Vent. Rate : 095 BPM Atrial Rate : 095 BPM P-R Int : 148 ms QRS Dur : 074 ms QT Int : 348 ms P-R-T Axes : 030 -25 060 degrees QTc Int : 437 ms SINUS RHYTHM WITH SINUS ARRHYTHMIA WITH OCCASIONAL PREMATURE VENTRICULAR COMPLEXES OTHERWISE NORMAL ECG NO PREVIOUS ECGS AVAILABLE Confirmed by CONCHIS CORNELL MD ([id number]) on 06/15/2018 11:39:14 AM Referred By: MD SORENSEN Confirmed By:CONCHIS CORNELL MD
--- NOTE | 2018-06-15 17:49 | PN ---
Progress Note (short form) - Note Progress Note: ID consult dictated imp/reccd 87 yo man with PMH lupus on plaquenil, DM, PVD, CKD admitted with one week of weakness, cough, joints hurting and nonbloody diarrhea He was seen at [facility] on 06/13 and was diagnosed with influenza- felt worse yesterday and called ambulance and went to [facility]-ED was packed so the family brought him here no fevers dehydration chest ct negative for infiltrate- +COPD received rocephin/zith today no antiiboitcs at home here from [place] son is sick and hospitalized at [facility] Influenza continue tamiflu continue ivf f/u stool studies can d/c antibiotics and observe d/w hospitalist Problem List - Problems (1) Influenza Code(s): J11.1 - FLU DUE TO UNIDENTIFIED INFLUENZA VIRUS W OTH RESP MANIFEST (2) CYNTHIA (acute kidney injury) Code(s): N17.9 - ACUTE KIDNEY FAILURE, UNSPECIFIED (3) Lupus Code(s): M32.9 - SYSTEMIC LUPUS ERYTHEMATOSUS, UNSPECIFIED
--- NOTE | 2018-06-15 18:43 | CONS ---
DATE OF CONSULTATION: DATE OF DICTATION: 06/15/2018 INFECTIOUS DISEASE CONSULTATION REQUESTED BY: Hospitalist Service This is an 87-year-old man with a history of lupus. He is on Plaquenil. He has a history of bho-cpbjxcy-mcxzfvdto diabetes, peripheral vascular disease who reports around 4 or 5 days ago up to a week ago he started having weakness with cough and headache, joints hurting, and he developed diarrhea. He had a poor appetite. He has been feeling so weak that he has not been able to get around the house. On June 13, he went to [facility] and was diagnosed with influenza. Given the fact he was having diarrhea, the decision was made not to treat him with Tamiflu. He went back home. He continued to have cough and weakness, unable to eat, he was feeling very dehydrated, and his family called the ambulance, and they took him to [facility]. The emergency room was packed at [facility], and they put him in the car and brought him to [facility]. He was seen in the emergency room here and advised admission. He has had no fever. He was given IV fluids. He was given Rocephin and Zithromax for possibly community-acquired pneumonia. There was question of infiltrate on chest x-ray, and he was started on Tamiflu. I was asked to see him for further evaluation. He reports feeling much better now. He has had 2 episodes of diarrhea today, both nonbloody. There is no abdominal pain. He has no chest pain. He has not been taking any antibiotics, and he has no known drug allergies. He has sick contacts. Apparently, his daughter also has cough. PAST MEDICAL HISTORY: Notable for lupus, diabetes, peripheral vascular disease with stent, chronic kidney disease, and mild dementia. SURGICAL HISTORY: Noted for cholecystectomy, lithotripsy, stent in his leg, tells me that he has had diverticulitis and surgery in the past as well. SOCIAL HISTORY: He is a former smoker, former alcohol use more than 40 years ago. He lives with his spouse. He is retired. He lives in [place], outside of [place], and came here before [place] because his son is very sick and is hospitalized at [facility]. FAMILY HISTORY: Unremarkable. Parents of natural causes in their 90s. ALLERGIES: He has no known drug allergies. MEDICATIONS: Include aspirin, baclofen, vitamin D, vitamin B12, iron, folic acid, hydrochlorothiazide, hydroxyquinoline, leflunomide, Zestril, metformin, multivitamins, omeprazole, rivastigmine, and vitamin B6. REVIEW OF SYSTEMS: As per HPI. He reports overall feeling much improved. PHYSICAL EXAMINATION: General: He is currently sitting at the side of the bed. Vital Signs: Temperature is 98, T-max has been 99.3, pulse of 71, blood pressure 130/55, respiratory rate is 18, saturating 99% on 2 L. HEENT: Normocephalic. His eyes are anicteric. Neck: Supple. Lungs: Scattered rhonchi. Heart: Regular rate and rhythm. Abdomen: Soft, nontender. He has a midline incision that is well healed. Extremities: Without edema. LABORATORIES: Notable for white count of 4.7, hemoglobin 9.3, platelets 128. BUN and creatinine yesterday were BUN 41 and creatinine 1.8 and today BUN 32 and creatinine 1.5. Urinalysis is negative for white cells and leukocyte esterase. Blood cultures are negative after 24 hours. Urine culture is pending, and stools are pending as well. He had a chest x-ray followed by CT scan of his chest is notable for moderate COPD and interstitial lung disease with no evidence of pneumonia. In summary, this is an elderly gentleman with lupus and Plaquenil who has influenza documented at the [facility], will continue Tamiflu as ordered, will continue IV fluids. He received ceftriaxone and Zithromax this morning, given the that the CAT scan is negative for infiltrate, I would suggest we stop his antibiotics and follow up a stool study in the morning. Case was discussed with the hospitalist. LUNA PEARL M.D. [id number]
[2018-06-15] MEDS ORDERED: BACLOFEN 10 MG TABLET (FP) PO SCH (22:00)
[2018-06-16] MEDS: HEPARIN NA (PORCINE) 5,000 UNITS/ML 1ML VIAL SQ SCH ×2 (06:30→14:15)
[2018-06-16 09:32] LABS: BASO % 0.3 % (0-2.0); EOS % 2.8 % (0-4.5); HEMATOCRIT 29.7 % (35.4-49); HEMOGLOBIN 9.5 GM/dl (11.7-16.9); LYMPH % 25.4 % (8-40); MCH 30.4 pg (25.7-33.7); MCHC 32.1 g/dl (32.0-35.9); MEAN CELL VOLUME 94.8 fl (80-96); MEAN PLT VOLUME 7.7 fl (7.5-11.1); MONO % 10.5 % (3.8-10.2); PLATELET COUNT 128 K/MM3 (134-434); RBC 3.13 M/mm3 (4.00-5.60); RDW 13.9 % (11.9-15.9); WHITE BLOOD COUNT 5.8 K/mm3 (4.0-10.8)
[2018-06-16] MEDS ORDERED: PT OWN MED DRAWER 7, Y5N ONE (09:33)
[2018-06-16 09:55] LABS: ALK PHOS 60 U/L (32-92); ANION GAP 6 MMOL/L (8-16); CHLORIDE 110 mmol/L (98-107); CO2 19 mmol/L (22-28); GLUCOSE,RANDOM 80 mg/dl (74-106); SGPT/ALT 23 U/L (10-40); SODIUM 135 mmol/L (136-145)
[2018-06-16 10:07] LABS: BLOOD UREA NITROGEN 27 mg/dl (7-18); CREATININE 1.6 mg/dl (0.6-1.3)
[2018-06-16 10:08] LABS: ALBUMIN 2.6 g/dl (3.5-5.0); BILIRUBIN,TOTAL 0.2 mg/dl (0.2-1.0); MAGNESIUM 1.5 mg/dL (1.8-2.4); SGOT/AST 25 U/L (10-42); TOT PROT 5.7 g/dl (6.4-8.3)
[2018-06-16] MEDS: FERROUS SO4 325 MG TABLET (FP) PO SCH (10:13)
[2018-06-16] MEDS: RIVASTIGMINE TARTRATE 1.5 MG CAPSULE PO SCH (10:13)
[2018-06-16] MEDS: FOLIC ACID 1 MG TABLET (FP) PO SCH (10:13)
[2018-06-16] MEDS: OMEGA-3 ACID ETHYL ESTERS (FATTY-ACIDS) 1 GM CAPSULE (FP) PO SCH (10:14)
[2018-06-16] MEDS: HYDROXYCHLOROQUINE SO4 200 MG TABLET (FP) PO SCH (10:14)
[2018-06-16] MEDS: OSELTAMIVIR PHOSPHATE 30 MG CAPSULE PO SCH (10:14)
[2018-06-16] MEDS: PANTOPRAZOLE 40 MG TABLET (FP) PO SCH (10:14)
[2018-06-16] MEDS: MULTIVITAMINS THER W-MINERALS COMBO TABLET (FP) PO SCH (10:14)
[2018-06-16] MEDS: VITAMIN B COMPLEX W/C COMBO TABLET (FP) PO SCH (10:15)
[2018-06-16] MEDS: CYANOCOBALAMIN 1,000 MCG TABLET (FP) PO SCH (10:15)
[2018-06-16] MEDS: CHOLECALCIFEROL (VITAMIN D3) 1,000 UNIT TABLET (FP) PO SCH (10:18)
[2018-06-16] MEDS: ASPIRIN 81 MG CHEWABLE TABLETS PO SCH (10:52)
--- NOTE | 2018-06-16 12:24 | PN ---
Physical Exam: SUBJECTIVE: Patient seen and examined OBJECTIVE: Vital Signs Period Temp Pulse Resp BP Sys/Mejía Pulse Ox Last 24 Hr 97.7 F-98.3 F 59-84 18-20 111-133/50-61 96-100 GENERAL: The patient is awake, alert, and fully oriented, in no acute distress. HEAD: Normal with no signs of trauma. EYES: PERRL, extraocular movements intact, sclera anicteric, conjunctiva clear. No ptosis. ENT: Ears normal, nares patent, oropharynx clear without exudates, moist mucous membranes. NECK: Trachea midline, full range of motion, supple. LUNGS: Breath sounds equal, clear to auscultation bilaterally, no wheezes, no crackles, no accessory muscle use. HEART: Regular rate and rhythm, S1, S2 without murmur, rub or gallop. ABDOMEN: Soft, nontender, nondistended, normoactive bowel sounds, no guarding, no rebound, no hepatosplenomegaly, no masses. EXTREMITIES: 2+ pulses, warm, well-perfused, no edema. NEUROLOGICAL: Cranial nerves II through XII grossly intact. Normal speech, gait not observed. PSYCH: Normal mood, normal affect. SKIN: Warm, dry, normal turgor, no rashes or lesions noted Laboratory Results - last 24 hr 06/16/18 06/16/18 08:15 08:15 WBC 5.8 RBC 3.13 L Hgb 9.5 L Hct 29.7 L MCV 94.8 MCH 30.4 MCHC 32.1 RDW 13.9 Plt Count 128 L MPV 7.7 Absolute Neuts (auto) 3.5 Neutrophils % 61.0 Lymphocytes % 25.4 D Monocytes % 10.5 H Eosinophils % 2.8 D Basophils % 0.3 Sodium 135 L Potassium 4.0 Chloride 110 H Carbon Dioxide 19 L Anion Gap 6 L BUN 27 H Creatinine 1.6 H Creat Clearance w eGFR 41.29 Random Glucose 80 D Calcium 8.0 L Magnesium 1.5 L Total Bilirubin 0.2 AST 25 D ALT 23 D Alkaline Phosphatase 60 D Total Protein 5.7 L Albumin 2.6 L Active Medications Generic Name Dose Route Start Last Admin Trade Name Freq PRN Reason Stop Dose Admin Acetaminophen 650 mg 06/14/18 22:46 06/15/18 21:48 Tylenol - PO 650 mg Q6H PRN Administration FEVER Aspirin 81 mg 06/15/18 10:00 06/15/18 09:58 Asa - PO 81 mg DAILY NARCISO Administration Baclofen 10 mg 06/15/18 22:00 06/15/18 21:47 Lioresal - PO 10 mg HS NARCISO Administration Cholecalciferol 5,000 unit 06/15/18 10:00 06/15/18 09:54 Vitamin D3 - PO 5,000 unit DAILY NARCISO Administration Cyanocobalamin 2,500 mcg 06/15/18 10:00 06/15/18 10:04 Vitamin B12 - PO 2,500 mcg DAILY NARCISO Administration Ferrous Sulfate 325 mg 06/15/18 10:00 06/15/18 09:59 Feosol - PO 325 mg DAILY NARCISO Administration Folic Acid 1 mg 06/15/18 10:00 06/15/18 09:58 Folic Acid - PO 1 mg DAILY NARCISO Administration Guaifenesin 10 ml 06/14/18 23:16 06/15/18 06:04 Robitussin Dm - PO 10 ml Q6H PRN Administration COUGH Heparin Sodium (Porcine) 5,000 unit 06/14/18 22:00 06/16/18 06:30 Heparin - SQ 5,000 unit TID NARCISO Administration Hydroxychloroquine Sulfate 200 mg 06/15/18 10:00 06/15/18 09:53 Plaquenil - PO 200 mg DAILY NARCISO Administration Multivitamins 1 each 06/15/18 10:00 06/15/18 09:57 Total B With C - PO 1 each DAILY NARCISO Administration Multivitamins/Minerals 1 each 06/15/18 10:00 06/15/18 09:58 Theragran-M PO 1 each DAILY NARCISO Administration [id number] Ethyl Esters 1 gm 06/15/18 10:00 06/15/18 09:54 Lovaza - PO 1 gm DAILY NARCISO Administration Oseltamivir Phosphate 30 mg 06/14/18 17:56 06/15/18 21:47 Tamiflu - PO 06/19/18 17:55 30 mg BID NARCISO Administration Pantoprazole Sodium 40 mg 06/15/18 10:00 06/15/18 09:58 Protonix - PO 40 mg DAILY NARCISO Administration Rivastigmine Tartrate 3 mg 06/14/18 23:45 06/15/18 21:48 Exelon (Nf) - PO 3 mg BID NARCISO Administration ASSESSMENT/PLAN:
[2018-06-16 14:25] VITALS: BP 141/63; PULSE 116; TEMP 97.8
[2018-06-16] MEDS ORDERED: MAG HYDROX/AL HYDROX/SIMETH 30 ML UNIT-DOSE CUP PO ONE (15:00)
--- NOTE | 2018-06-16 16:08 | DS ---
Physical Exam: SUBJECTIVE: Patient seen and examined OBJECTIVE: Vital Signs Period Temp Pulse Resp BP Sys/Mejía Pulse Ox Last 24 Hr 97.7 F-98.3 F 59-116 18-20 111-141/50-63 96-100 PHYSICAL EXAM GENERAL: The patient is awake, alert, and fully oriented, in no acute distress. HEAD: Normal with no signs of trauma. EYES: PERRL, extraocular movements intact, sclera anicteric, conjunctiva clear. ENT: Ears normal,moist mucous membranes. NECK: Trachea midline, full range of motion, supple. LUNGS: Breath sounds equal, clear to auscultation bilaterally, no wheezes, no crackles, no accessory muscle use. + productive cough HEART: Regular rate and rhythm, S1, S2 without murmur, rub or gallop. ABDOMEN: Soft, nontender, nondistended, normoactive bowel sounds, no guarding, no rebound, EXTREMITIES: 2+ pulses, warm, well-perfused, no edema. NEUROLOGICAL: Cranial nerves II through XII grossly intact. Normal speech, gait not observed. PSYCH: Normal mood, normal affect. SKIN: Warm, dry, normal turgor, no rashes or lesions noted. LABS Laboratory Results - last 24 hr 06/16/18 06/16/18 08:15 08:15 WBC 5.8 RBC 3.13 L Hgb 9.5 L Hct 29.7 L MCV 94.8 MCH 30.4 MCHC 32.1 RDW 13.9 Plt Count 128 L MPV 7.7 Absolute Neuts (auto) 3.5 Neutrophils % 61.0 Lymphocytes % 25.4 D Monocytes % 10.5 H Eosinophils % 2.8 D Basophils % 0.3 Sodium 135 L Potassium 4.0 Chloride 110 H Carbon Dioxide 19 L Anion Gap 6 L BUN 27 H Creatinine 1.6 H Creat Clearance w eGFR 41.29 Random Glucose 80 D Calcium 8.0 L Magnesium 1.5 L Total Bilirubin 0.2 AST 25 D ALT 23 D Alkaline Phosphatase 60 D Total Protein 5.7 L Albumin 2.6 L HOSPITAL COURSE: Date of Admission:06/14/18 Date of Discharge: 06/16/18 Pre-hospital Course This is a 87 y/o man with a past medical history of Lupus (Plaqunil), NIDDM, PVD (Stent placed L- Leg), CKD, Dementia. Who presents with his family for flu like symptoms, watery diarrhea (4 days), and generalized weakness. Per the daughter the patient was seen at [facility]- diagnosed with Influenza but was not given rx. She reports he has had fevers for 1 week, and was concerned that he was dehydrated from the diarrhea, fever and decreased appetite. She reports that he was so weak that an ambulance was called and he was transported to [facility], but due to the long wait time and delays for admission, they left and was brought up to [place] for evaluation. ED Course 1 Influenza --Tamiflu renal dosing --Monitor vitals --Monitor CBC 1. Pneumonia --Chest Xray image- Right sided infiltrate --Blood Cultures-negative --Lactic Acid- 0.8 --Urine Culture-negative --Legionella Culture negative --Azithromycin and Ceftriaxone given in ED --Monitor CBC, BMP --Monitor vitals --ID consult 3.CYNTHIA --Likely secondary Dehydration --gentle IVF --Monitor BMP --Hold Metformin, HCTZ, Lisinopril Subsequent hospital Course 1 Influenza --Tamiflu renal dosing --Monitor vitals --Monitor CBC --ID Consult 1. Pneumonia --Chest Xray image- Right sided infiltrate --Blood Cultures-negative --Lactic Acid- 0.8 --Urine Culture-negative --Legionella Culture negative --Azithromycin and Ceftriaxone given in ED --Ct. scan of chest negative for pneumonia --Monitor CBC, BMP --Monitor vitals --ID consult recommend to stop antibiotics 3.CYNTHIA --Likely secondary Dehydration --gentle IVF --Monitor BMP --Hold Metformin, HCTZ, Lisinopril 4. Lupus --Continue Plaquenil 5. Diabetes mellitus --Stable --Monitor BGM --ISS --Monitor renal function 6. CKD (chronic kidney disease) --Cr 1.8 --Will avoid nephrotoxic drugs --Monitor renal function Discharge Summary Reason For Visit: INFLUENZA/ PNEUMONIA Current Active Problems CYNTHIA (acute kidney injury) (Acute) CKD (chronic kidney disease) (Acute) Diabetes mellitus (Acute) Influenza (Acute) Lupus (Acute) Pneumonia (Acute) Condition: Improved - Instructions Diet, Activity, Other Instructions: A prescription has been sent to your pharmacy for Tamiflu. Take this medication as directed and be sure to finish it as prescribed. Schedule an appointment with your doctor in 3 days. Return to the emergency room for new or worsening symptoms. Referrals: Clay Thornton MD [Staff Physician] - 1 Week Disposition: HOME - Home Medications Comprehensive Discharge Medication List: Ambulatory Orders Aspirin [Children's Aspirin] 81 mg PO DAILY 06/14/18 Baclofen 10 mg PO HS 06/14/18 Cholecalciferol (Vitamin D3) [Vitamin D3 -] 5,000 unit PO DAILY 06/14/18 Cyanocobalamin (Vitamin B-12) [Vitamin B12] 2,500 mcg PO DAILY 06/14/18 Ferrous Sulfate [Iron] 325 mg PO DAILY 06/14/18 Folic Acid 1 mg PO DAILY 06/14/18 Hydrochlorothiazide [Hctz -] 12.5 mg PO DAILY 06/14/18 Hydroxychloroquine Sulfate 200 mg PO DAILY 06/14/18 Leflunomide [Arava] 20 mg PO DAILY 06/14/18 Lisinopril [Zestril] 5 mg PO DAILY 06/14/18 Metformin HCl [Glucophage] 500 mg PO ASDIR 06/14/18 Multivit-Min/FA/Lycopen/Lutein [Centrum Silver Tablet] 1 each PO DAILY 06/14/18 [place]-3S/Dha/Epa/Fish Oil [Fish Oil 1,200 mg Softgel] 1,400 each PO DAILY Omeprazole 40 mg PO DAILY 06/14/18 Rivastigmine Tartrate [Rivastigmine] 3 mg PO BID 06/14/18 Vitamin B Complex 1 each PO DAILY 06/14/18
== END 2018-06-16 16:54 | disposition home or self-care (01) | DRG 194 ==
LOC: FER 15:51 → FM/S 17:00 → OBSVTOIN 18:18 → UNDOADMOB 19:14 → FM/S 19:14
PROVIDERS: ADMIT Internal Medicine; ATTEND Nurse Practitioner Acute Care
DX: J11.00 Influenza due to unidentified influenza virus with unspecified type of pneumonia (principal); N17.9 Acute kidney failure, unspecified; N18.9 Chronic kidney disease, unspecified; E86.0 Dehydration; E11.9 Type 2 diabetes mellitus without complications; M32.9 Systemic lupus erythematosus, unspecified; F03.90 Unspecified dementia, unspecified severity, without behavioral disturbance, psychotic disturbance, mood disturbance, and anxiety
CPT/HCPCS: 36415; 71045-TC-FY; 71250-TC; 80048; 80053; 81003; 81015; 82803; 83605; 83735; 84484; 85025; 85610; 85730; 87040; 87045; 87046; 87086; 87324; 87449; 87899; 93005; 99284-25; G0378; J0475; J1644; J7030